=== PATIENT | female | born 1990 | race Two or more races ===

== ENCOUNTER 2017-11-02 15:45 | Outpatient (CLI) | payer OTHER, MEDICAID | END 2017-11-02 15:46 | disposition critical access hospital (66) | LOC: EMS 15:45 | PROVIDERS: ATTEND Surgery | DX: M54.2 Cervicalgia (principal); V49.50XA Passenger injured in collision with unspecified motor vehicles in traffic accident, initial encounter; Y92.413 State road as the place of occurrence of the external cause | CPT/HCPCS: A0425; A0429; A0999 ==

== ENCOUNTER 2017-11-02 16:22 | Emergency (ER) | payer OTHER, MEDICAID ==
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
[2017-11-02 18:17] VITALS: BP 132/86
== END 2017-11-02 18:17 | disposition home or self-care (01) ==
LOC: ED 16:22
DX: S16.1XXA Strain of muscle, fascia and tendon at neck level, initial encounter (principal); V43.62XA Car passenger injured in collision with other type car in traffic accident, initial encounter; Y92.89 Other specified places as the place of occurrence of the external cause
CPT/HCPCS: 72125; 99283